=== PATIENT | male | born 1970 | race Caucasian/White ===

== ENCOUNTER 2020-11-29 10:44 | Emergency (ER) | payer SELFPAY ==
[~2020-11-29] VITALS: Ht 177.8 cm; Wt 131.9 kg
[2020-11-29] MEDS ORDERED: ASPIRIN 325 MG TABLET PO ONE (11:15)
[2020-11-29 11:37] LABS: BASO # 0.1 x10^3/uL (0.0-0.2); BASO % 1 % (0-3); EOS # 0.1 x10^3/uL (0.0-0.7); EOS % 1 % (0-3); HEMOGLOBIN 13.3 g/dL (13.0-17.5); LYMPH # 2.2 x10^3/uL (1.0-4.8); LYMPH % 16 % (24-48); MEAN CORPUSCULAR HEMOGLOBIN 30 pg (25-35); MEAN CORPUSCULAR HGB CONC 34 g/dL (31-37); MEAN CORPUSCULAR VOLUME 89 fL (79-100); MONO % 7 % (0-9); NEUT # 10.3 x10^3/uL (1.8-7.7); NEUT % 75 % (31-73); PLATELET COUNT 310 x10^3/uL (140-400); RED BLOOD COUNT 4.41 x10^6/uL (4.30-5.70); RED CELL DISTRIBUTION WIDTH 13.8 % (11.5-14.5); WHITE BLOOD COUNT 13.7 x10^3/uL (4.0-11.0)
--- NOTE | 2020-11-29 11:40 | PHYS DOC ---
Past Medical History Additional Past Medical Histor: chronic back pain Past Surgical History: Other Additional Past Surgical Histo: lumbar x 4, Smoking Status: Never Smoker Additional Information: uses chewing tobacco Alcohol Use: Occasionally Drug Use: None General Adult EDM: Chief Complaint: SHOUDLER HPI: HPI: Patient is a 50 year old male presents with right upper chest pain that radiates into his shoulder. Reports pain began suddenly this morning while sitting at work and he had some associated shortness of breath. Describes his pain as sharp and rates it 8/10 at its worst. Reports pain worsens with right shoulder movement. Denies any alleviating factors. Denies any injury or precipitating event. Denies any known exposure to COVID and he has not been vaccinated. Review of Systems: Review of Systems: Constitutional: Denies fever or chills Eyes: Denies redness or eye pain HENT: Denies nasal congestion or sore throat Respiratory: Reports shortness of breath. Denies cough Cardiovascular: Reports right chest pain. Denies palpitations GI: Denies abdominal pain, nausea, or vomiting : Denies dysuria or hematuria Musculoskeletal: Reports right shoulder pain. Denies joint pain Integument: Denies rash or skin lesions Neurologic: Denies headache, focal weakness or sensory changes Complete systems were reviewed and found to be within normal limits, except as documented in this note. Heart Score: C/O Chest Pain: Yes HEART Score for Chest Pain: HEART Score for Chest Pain Response (Comments) Value History Slighlty/Non-Suspicious 0 ECG Normal 0 Age >45 - < 65 1 Risk Factors No Risk Factors 0 Troponin < Normal Limit 0 Total 1 Risk Factors: Risk Factors: DM, Current or recent (<one month) smoker, HTN, HLP, family history of CAD, obesity. Risk Scores: Score 0 - 3: 2.5% MACE over next 6 weeks - Discharge Home Score 4 - 6: 20.3% MACE over next 6 weeks - Admit for Clinical Observation Score 7 - 10: 72.7% MACE over next 6 weeks - Early Invasive Strategies Current Medications: Current Medications Medications (Trade) Dose Ordered Sig/Linn Start Time Stop Time Status Last Admin Dose Admin Aspirin (María Aspirin) 325 mg 1X ONCE 11/29/20 11:15 11/29/20 11:16 UNV Allergies: Allergies: Allergies Coded Allergies Type Severity Reaction Last Updated Verified Penicillins Allergy Intermediate 11/29/20 Yes Physical Exam: PE: Constitutional: Appears uncomfortable secondary to pain. Well developed, well nourished, no acute distress, non-toxic appearance HENT: Normocephalic, atraumatic Eyes: Conjunctiva normal, no discharge Neck: Normal range of motion, no tenderness, supple Lungs & Thorax: There is mild tenderness to palpation over the right chest wall. No respiratory distress, equal chest rise and fall Abdomen: Soft, no tenderness Skin: Warm, dry, no erythema, no rash Back: No tenderness, no CVA tenderness Extremities: Reproducible right shoulder pain with active and passive ROM. No tenderness, ROM intact, no edema Neurologic: Alert and oriented X 3, normal motor function, normal sensory function, no focal deficits noted Psychologic: Affect normal, judgment normal Current Patient Data: Vital Signs: Vital Signs Date Time Temp Pulse Resp B/P (MAP) Pulse Ox O2 Delivery O2 Flow Rate FiO2 11/29/20 10:57 98.6 78 24 155/89 97 Room Air 98.6 EKG: EK BPM, sinus rhythm, QRS 90ms, QTc 424ms Radiology/Procedures: Radiology/Procedures: Exam Date: 11/29/2020 11:24 AM XR CHEST 1V Indication: Reason: chest pain / Spl. Instructions: / History: . FINDINGS/ IMPRESSION: The cardiac silhouette and pulmonary vasculature are within normal limits. There is no focal consolidation, pleural effusion or pneumothorax. The visualized osseous structures are intact. Electronically signed by: Bon Raya MD (11/29/2020 11:36 AM) [id number] Course & Med Decision Making: Course & Med Decision Making 50 year old male with no cardiac history presents with several hours of upper chest pain radiating into his right shoulder. Labs and imaging obtained and posted to chart. EKG and troponin negative. Given patient's history and physical exam, his pain today is likely musculoskeletal in nature. Administered Norflex while in the ED and will be provided a prescription at discharge. Patient stable for discharge with outpatient follow-up with PCP. Discussed findings and plan with patient, who acknowledges understanding and agreement. Rishabh Disclaimer: Rishabh Disclaimer: This electronic medical record was generated, in whole or in part, using a voice recognition dictation system. Departure Departure Impression: Primary Impression: Atypical chest pain Disposition: HOME / SELF CARE / HOMELESS Condition: STABLE Referrals: UNKNOWN PCP NAME (PCP) CAIN PEARSON MD Patient Instructions: Cervical Radiculopathy, [id number], Chest Pain (Nonspecific), [id number], Musculoskeletal Pain Additional Instructions: Take previously prescribed pain medication as directed. ICE area of discomfort 20 min on then leave off next 20 mins. Repeat several times daily for next few days. May also take over the counter Ibuprofen or Aleve for pain. Scripts Orphenadrine Citrate (ORPHENADRINE CITRATE) 100 Mg Tablet.er 100 MG PO BID PRN for MUSCLE PAIN, #20 TAB Prov: ELAN LEWIS DO 11/29/20 ELAN LEWIS DO Nov 29, 2020 11:40
[2020-11-29 11:55] LABS: CREATININE 0.8 mg/dL (0.7-1.3); GFR 101.5; POTASSIUM 4.5 mmol/L (3.5-5.1)
[2020-11-29 12:04] LABS: ALBUMIN 3.8 g/dL (3.4-5.0); ALBUMIN/GLOBULIN RATIO 0.9 (1.0-1.7); MAGNESIUM 2.2 mg/dL (1.8-2.4); TOTAL BILIRUBIN 0.7 mg/dL (0.2-1.0); TOTAL PROTEIN 7.9 g/dL (6.4-8.2)
[2020-11-29] MEDS ORDERED: ORPH100T PO (12:52)
[2020-11-29] MEDS ORDERED: ORPHENADRINE CITRATE 60 MG/2 ML VIAL. IV ONE (13:00)
[2020-11-29 13:35] VITALS: BP 149/68
== END 2020-11-29 13:40 | disposition home or self-care (01) ==
LOC: ER 10:44
DX: R07.89 Other chest pain (principal); M25.511 Pain in right shoulder; F17.220 Nicotine dependence, chewing tobacco, uncomplicated; G89.29 Other chronic pain; Z88.0 Allergy status to penicillin
CPT/HCPCS: 36415; 71045; 80053; 83690; 83735; 83880; 84484; 85025; 93005; 96374; 96375; 99285; J2060; J2360